=== PATIENT | male | born 1935 | race Caucasian/White ===

== ENCOUNTER 2018-11-20 03:08 | Emergency (ER) | payer OTHER ==
[~2018-11-20] VITALS: Ht 193 cm; Wt 105.0 kg
[2018-11-20 03:17] VITALS: BP 169/72
--- NOTE | 2018-11-20 03:39 | NUR ---
Pt here by ambulance for weakness and shortness of breath. Per EMS room air SPO2 93%. Lungs clear. Pt alert and oriented times 4, however inconsistent with questions about medical history. Recent pacemaker replacement. incision approximated with sotero. No redness or erythema. Yellowed bruising. Urinary catheter in place. Pt reports that he is scheduled for a TURP.
[2018-11-20 03:48] LABS: BASOPHILS # (AUTO) 0.03 x10^3/uL (0-0.1); BASOPHILS % (AUTO) 0 % (0-1); EOSINOPHILS # (AUTO) 0.21 x10^3/uL (0-0.4); EOSINOPHILS % (AUTO) 3 % (1-7); LYMPHOCYTES # (AUTO) 1.32 x10^3/uL (1-3.4); LYMPHOCYTES % (AUTO) 18 % (22-44); MD NO; MEAN CORPUSCULAR HEMOGLOBIN 26.2 pg (27.5-34.5); MEAN CORPUSCULAR HGB CONC 32.9 g/dL (33.2-36.2); MEAN CORPUSCULAR VOLUME 79.8 fL (81-97); MEAN PLATELET VOLUME 7.7 fL (7.4-10.4); MONOCYTES # (AUTO) 0.65 x10^3/uL (0.2-0.8); MONOCYTES % (AUTO) 9 % (2-9); NEUTROPHILS # (AUTO) 5.23 x10^3/uL (1.8-6.8); NEUTROPHILS % (AUTO) 70 % (42-75); PLATELET COUNT 282 x10^3/uL (130-400); RED BLOOD COUNT 4.42 x10^6/uL (4.38-5.82); RED CELL DISTRIBUTION WIDTH 18.3 % (9.4-14.8)
[2018-11-20 03:57] LABS: INTERNATIONAL NORMALIZED RATIO 1.02 (0.93-1.1); PROTHROMBIN TIME 10.7 Seconds (9.6-11.5)
[2018-11-20 03:58] LABS: ALANINE AMINOTRANSFERASE 20 U/L (12-78); ALBUMIN 3.2 g/dL (3.4-5.0); ANION GAP 6 mmol/L (5-15); CALCIUM 8.7 mg/dL (8.5-10.1); CHLORIDE 109 mmol/L (98-107); CREATININE 0.88 mg/dL (0.7-1.3)
[2018-11-20 04:02] LABS: ALKALINE PHOSPHATASE 62 U/L (45-117); BILIRUBIN,TOTAL 0.5 mg/dL (0.2-1.0); TOTAL PROTEIN 6.5 g/dL (6.4-8.2); TROPONIN I < 0.015 ng/mL (0.000-0.045)
[2018-11-20] MEDS ORDERED: METO25TA35 PO (04:05)
[2018-11-20] MEDS ORDERED: TAMS-11 PO (04:05)
[2018-11-20] MEDS ORDERED: LISI5TAB7 PO (04:05)
[2018-11-20 04:31] LABS: CULTURE INDICATED? YES; MICROSCOPIC INDICATED
--- NOTE | 2018-11-20 04:43 | NUR ---
Pt ambulated in hallway with walker. Unsteady gait. Usually uses a front wheeled walker. Independent living. Pt spo2 95%. Discussed with Dr. Iqbal. Pt to be discharged home. Looking for a safe way home.
[2018-11-21] MEDS ORDERED: METH500T7 PO (02:58)
[2018-11-21] MEDS ORDERED: ATOR10TA9 PO (02:58)
== END 2018-11-20 06:24 | disposition home or self-care (01) ==
LOC: ED 05:07
DX: M54.2 Cervicalgia (principal); R60.0 Localized edema; I48.91 Unspecified atrial fibrillation; I10 Essential (primary) hypertension; Z95.0 Presence of cardiac pacemaker; W01.0XXA Fall on same level from slipping, tripping and stumbling without subsequent striking against object, initial encounter; Y93.89 Activity, other specified; Y92.89 Other specified places as the place of occurrence of the external cause; Y99.8 Other external cause status
CPT/HCPCS: 36415; 71045; 80053; 81001; 83880; 84484; 85025; 85610; 85730; 87077; 87086; 87106; 87186; 93005; 99284

== ENCOUNTER 2018-11-21 02:44 | Inpatient (IN) | payer OTHER ==
[2018-11-21] VITALS (7 sets, daily range): BP systolic 131–160; BP diastolic 63–85
[~2018-11-21] VITALS: Ht 193 cm; Wt 102.0 kg
[~2018-11-21 02:44] MED LIST: LISI5TAB7 PO; METO25TA35 PO; TAMS-11 PO
[2018-11-21] MEDS ORDERED: ATOR10TA9 PO (02:58)
[2018-11-21] MEDS ORDERED: METH500T7 PO (02:58)
--- NOTE | 2018-11-21 03:30 | NUR ---
PT BIB [facility] WITH WEAKNESS. - LOC, PT STATES HE DID NOT HIT HIS HEAD. A&O x4, GSC 15.
[2018-11-21 03:42] LABS: BASOPHILS # (AUTO) 0.03 x10^3/uL (0-0.1); BASOPHILS % (AUTO) 1 % (0-1); EOSINOPHILS % (AUTO) 2 % (1-7); LYMPHOCYTES # (AUTO) 1.29 x10^3/uL (1-3.4); LYMPHOCYTES % (AUTO) 20 % (22-44); MD NO; MEAN CORPUSCULAR HEMOGLOBIN 26.3 pg (27.5-34.5); MEAN CORPUSCULAR HGB CONC 33.2 g/dL (33.2-36.2); MEAN PLATELET VOLUME 7.7 fL (7.4-10.4); MONOCYTES # (AUTO) 0.68 x10^3/uL (0.2-0.8); MONOCYTES % (AUTO) 11 % (2-9); NEUTROPHILS % (AUTO) 68 % (42-75); PLATELET COUNT 287 x10^3/uL (130-400); RED BLOOD COUNT 4.61 x10^6/uL (4.38-5.82); RED CELL DISTRIBUTION WIDTH 18.2 % (9.4-14.8)
[2018-11-21 03:54] LABS: ANION GAP 6 mmol/L (5-15); CALCIUM 8.9 mg/dL (8.5-10.1); CHLORIDE 110 mmol/L (98-107)
[2018-11-21 04:05] LABS: THYROID STIMULATING HORMONE 0.431 mIU/L (0.358-3.740)
--- NOTE | 2018-11-21 04:25 | NUR ---
PT STATES THAT HE WANTS TO GO HOME NOTIFIED
--- NOTE | 2018-11-21 05:14 | NUR ---
AWAITING ADMIT BED PT IN NAD VSS
--- NOTE | 2018-11-21 05:22 | NUR ---
REPORT TO ANNIVER PT TO FLOOR WITH TECH
[2018-11-21] MEDS ORDERED: hydrALAzine 20 MG/ML, 1ML IVPush PRN (05:30)
[2018-11-21] MEDS ORDERED: BISACODYL 10 MG SUPP PR PRN (05:30)
[2018-11-21] MEDS ORDERED: ONDANSETRON ODT 4 MG PO PRN (05:30)
[2018-11-21] MEDS ORDERED: PROMETHAZINE 25 MG/ML, 1ML IM PRN (05:30)
[2018-11-21] MEDS ORDERED: morphine SULFATE 10 MG/ML, 1ML IVPush PRN (05:30)
[2018-11-21] MEDS ORDERED: POLYETHYLENE GLYCOL 17 GM PACKET PO PRN (05:30)
[2018-11-21] MEDS ORDERED: ONDANSETRON 2MG/ML, 2ML IVPush PRN (05:30)
[2018-11-21] MEDS ORDERED: GABAPENTIN 300 MG CAPSULE PO PRN (05:30)
[2018-11-21 06:33] LABS: HEMOGLOBIN A1C 5.7 % (4.2-6.3)
[2018-11-21 07:06] LABS: FREE T4 (FREE THYROXINE) 1.32 ng/dL (0.76-1.46)
[2018-11-21] MEDS ORDERED: LISINOPRIL 5 MG TABLET PO SCH (09:00)
[2018-11-21] MEDS: METOPROLOL TARTRATE 25 MG TABLET PO SCH (11:32)
[2018-11-21] MEDS: ENOXAPARIN 40 MG/0.4 ML SQ SCH (11:32)
[2018-11-21] MEDS: TAMSULOSIN 0.4 MG CAP.ER.24H PO SCH (11:32)
[2018-11-21] MEDS: SENNA/DOCUSATE TABLET PO SCH (11:33)
[2018-11-21] MEDS: D5%-0.9% NACL 1,000 ML IV SCH ×2 (11:40→21:13)
[2018-11-21] MEDS: ERGOCALCIFEROL 50,000 UNIT CAPSULE PO SCH (14:27)
[2018-11-21] MEDS: ATORVASTATIN 10 MG TABLET PO SCH (21:08)
[2018-11-22 01:50] VITALS: BP 167/69
[2018-11-22 05:36] LABS: BASOPHILS # (AUTO) 0.04 x10^3/uL (0-0.1); BASOPHILS % (AUTO) 1 % (0-1); EOSINOPHILS # (AUTO) 0.12 x10^3/uL (0-0.4); EOSINOPHILS % (AUTO) 2 % (1-7); LYMPHOCYTES # (AUTO) 1.05 x10^3/uL (1-3.4); LYMPHOCYTES % (AUTO) 16 % (22-44); MD NO; MEAN CORPUSCULAR HGB CONC 32.8 g/dL (33.2-36.2); MEAN CORPUSCULAR VOLUME 79.1 fL (81-97); MEAN PLATELET VOLUME 8.2 fL (7.4-10.4); MONOCYTES # (AUTO) 0.74 x10^3/uL (0.2-0.8); MONOCYTES % (AUTO) 11 % (2-9); NEUTROPHILS # (AUTO) 4.69 x10^3/uL (1.8-6.8); NEUTROPHILS % (AUTO) 71 % (42-75); PLATELET COUNT 299 x10^3/uL (130-400); RED BLOOD COUNT 4.56 x10^6/uL (4.38-5.82); RED CELL DISTRIBUTION WIDTH 18.2 % (9.4-14.8)
[2018-11-22 05:50] LABS: CHLORIDE 113 mmol/L (98-107)
[2018-11-22 05:57] LABS: ALANINE AMINOTRANSFERASE 18 U/L (12-78); ALBUMIN 3.2 g/dL (3.4-5.0); ALKALINE PHOSPHATASE 69 U/L (45-117); ANION GAP 6 mmol/L (5-15); BILIRUBIN,TOTAL 0.7 mg/dL (0.2-1.0); CALCIUM 8.9 mg/dL (8.5-10.1); CHOL/HDL RATIO 2.6; CHOLESTEROL, TOTAL 149 mg/dL (140-239); CREATININE 0.72 mg/dL (0.7-1.3); HDL CHOLESTEROL (DIRECT) 58 mg/dL (40-60); TOTAL PROTEIN 6.6 g/dL (6.4-8.2); TRIGLYCERIDES 95 mg/dL (50-200); VLDL CHOLESTEROL 19 mg/dL (0-25)
[2018-11-22 05:58] LABS: HDL CHOL % 39 % (26-37); LDL CHOLESTEROL,CALCULATED 72 mg/dL (54-169); LDL/HDL RATIO 1.2 (0.5-3.0)
[2018-11-22 07:03] VITALS: BP 162/64
[2018-11-22] MEDS ORDERED: TRAZODONE 50MG TABLET PO PRN (08:00)
[2018-11-22] MEDS: SENNA/DOCUSATE TABLET PO SCH (09:00)
[2018-11-22] MEDS: ESCITALOPRAM 10MG TABLET PO SCH (09:00)
[2018-11-22] MEDS: TAMSULOSIN 0.4 MG CAP.ER.24H PO SCH (10:25)
[2018-11-22] MEDS: METOPROLOL TARTRATE 25 MG TABLET PO SCH (10:26)
[2018-11-22] MEDS: LISINOPRIL 20 MG TABLET PO SCH ×2 (10:27→22:14)
[2018-11-22] MEDS: IRON SUCROSE COMPLEX 100MG/5ML IV SCH (10:27)
[2018-11-22] MEDS: ENOXAPARIN 40 MG/0.4 ML SQ SCH (11:47)
[2018-11-22 12:31] LABS: CULTURE INDICATED? YES; MICROSCOPIC INDICATED
[2018-11-22 12:48] VITALS: BP 130/67
[2018-11-22] MEDS: CEFTRIAXONE PMX 1GM/50ML 50 ML IV SCH (14:11)
[2018-11-22] MEDS: ACETAMINOPHEN 325 MG TABLET PO PRN ×2 (16:09→23:37)
[2018-11-22 19:34] VITALS: BP 134/67
[2018-11-22] MEDS: ATORVASTATIN 10 MG TABLET PO SCH (22:14)
[2018-11-23 03:08] VITALS: BP 158/68
[2018-11-23 06:30] LABS: BASOPHILS # (AUTO) 0.03 x10^3/uL (0-0.1); BASOPHILS % (AUTO) 1 % (0-1); EOSINOPHILS # (AUTO) 0.13 x10^3/uL (0-0.4); EOSINOPHILS % (AUTO) 2 % (1-7); LYMPHOCYTES # (AUTO) 1.01 x10^3/uL (1-3.4); LYMPHOCYTES % (AUTO) 16 % (22-44); MD NO; MEAN CORPUSCULAR HEMOGLOBIN 25.7 pg (27.5-34.5); MEAN CORPUSCULAR HGB CONC 32.3 g/dL (33.2-36.2); MEAN CORPUSCULAR VOLUME 79.6 fL (81-97); MEAN PLATELET VOLUME 8.4 fL (7.4-10.4); MONOCYTES # (AUTO) 0.68 x10^3/uL (0.2-0.8); MONOCYTES % (AUTO) 11 % (2-9); NEUTROPHILS # (AUTO) 4.53 x10^3/uL (1.8-6.8); NEUTROPHILS % (AUTO) 71 % (42-75); PLATELET COUNT 263 x10^3/uL (130-400); RED BLOOD COUNT 4.67 x10^6/uL (4.38-5.82)
[2018-11-23 06:41] LABS: ALBUMIN 3.2 g/dL (3.4-5.0); ANION GAP 7 mmol/L (5-15); CALCIUM 8.8 mg/dL (8.5-10.1); CHLORIDE 114 mmol/L (98-107)
[2018-11-23 06:47] LABS: ALANINE AMINOTRANSFERASE 17 U/L (12-78); ALKALINE PHOSPHATASE 63 U/L (45-117); BILIRUBIN,TOTAL 0.6 mg/dL (0.2-1.0); CREATININE 0.79 mg/dL (0.7-1.3); TOTAL PROTEIN 6.6 g/dL (6.4-8.2)
[2018-11-23 07:45] VITALS: BP 161/68
[2018-11-23] MEDS: SENNA/DOCUSATE TABLET PO SCH (09:00)
[2018-11-23] MEDS: IRON SUCROSE COMPLEX 100MG/5ML IV SCH (10:53)
[2018-11-23] MEDS: TAMSULOSIN 0.4 MG CAP.ER.24H PO SCH (10:53)
[2018-11-23] MEDS: LISINOPRIL 20 MG TABLET PO SCH ×2 (11:00→21:02)
[2018-11-23] MEDS: METOPROLOL TARTRATE 25 MG TABLET PO SCH (11:01)
[2018-11-23] MEDS: ENOXAPARIN 40 MG/0.4 ML SQ SCH (11:03)
[2018-11-23] MEDS: ESCITALOPRAM 10MG TABLET PO SCH (11:06)
[2018-11-23] MEDS: CEFTRIAXONE PMX 1GM/50ML 50 ML IV SCH (13:19)
[2018-11-23 13:25] VITALS: BP 132/73
[2018-11-23] MEDS: HYDROcodone/APAP 5/325 TABLET PO PRN ×2 (14:16→21:02)
[2018-11-23] MEDS ORDERED: POTASSIUM CHLORIDE 20 MEQ TAB.ER.PRT PO ONE (16:30)
[2018-11-23] MEDS: AMPICILLIN 500 MG in SODIUM CHLORIDE 0.9% 100 ML IV SCH (16:54)
[2018-11-23 19:00] VITALS: BP 109/57
[2018-11-23 21:00] VITALS: BP 153/75
[2018-11-23] MEDS: ATORVASTATIN 10 MG TABLET PO SCH (21:02)
[2018-11-24] MEDS: AMPICILLIN 500 MG in SODIUM CHLORIDE 0.9% 100 ML IV SCH ×4 (00:52→19:21)
[2018-11-24] MEDS ORDERED: OMEPRAZOLE 20 MG CAPSULE.DR PO ONE (01:30)
[2018-11-24 01:45] VITALS: BP 133/57
[2018-11-24] MEDS: HYDROcodone/APAP 5/325 TABLET PO PRN ×4 (02:09→20:21)
[2018-11-24 05:58] LABS: BASOPHILS # (AUTO) 0.03 x10^3/uL (0-0.1); BASOPHILS % (AUTO) 1 % (0-1); EOSINOPHILS # (AUTO) 0.22 x10^3/uL (0-0.4); EOSINOPHILS % (AUTO) 3 % (1-7); LYMPHOCYTES # (AUTO) 1.17 x10^3/uL (1-3.4); LYMPHOCYTES % (AUTO) 17 % (22-44); MD NO; MEAN CORPUSCULAR HEMOGLOBIN 26.2 pg (27.5-34.5); MEAN CORPUSCULAR HGB CONC 32.9 g/dL (33.2-36.2); MEAN CORPUSCULAR VOLUME 79.5 fL (81-97); MEAN PLATELET VOLUME 8.1 fL (7.4-10.4); MONOCYTES # (AUTO) 0.67 x10^3/uL (0.2-0.8); MONOCYTES % (AUTO) 10 % (2-9); NEUTROPHILS # (AUTO) 4.69 x10^3/uL (1.8-6.8); NEUTROPHILS % (AUTO) 69 % (42-75); PLATELET COUNT 254 x10^3/uL (130-400); RED BLOOD COUNT 4.28 x10^6/uL (4.38-5.82)
[2018-11-24] MEDS: OMEPRAZOLE 20 MG CAPSULE.DR PO SCH (06:00)
[2018-11-24 07:13] LABS: ANION GAP 8 mmol/L (5-15); CALCIUM 8.5 mg/dL (8.5-10.1); CHLORIDE 114 mmol/L (98-107); CREATININE 0.86 mg/dL (0.7-1.3)
[2018-11-24 08:04] VITALS: BP 129/58
[2018-11-24] MEDS: TAMSULOSIN 0.4 MG CAP.ER.24H PO SCH (08:21)
[2018-11-24] MEDS: METOPROLOL TARTRATE 25 MG TABLET PO SCH (08:21)
[2018-11-24] MEDS: LISINOPRIL 20 MG TABLET PO SCH ×2 (08:21→20:21)
[2018-11-24] MEDS: IRON SUCROSE COMPLEX 100MG/5ML IV SCH (08:21)
[2018-11-24] MEDS: ESCITALOPRAM 10MG TABLET PO SCH (08:22)
[2018-11-24] MEDS: SENNA/DOCUSATE TABLET PO SCH (08:24)
[2018-11-24] MEDS: ENOXAPARIN 40 MG/0.4 ML SQ SCH (13:08)
[2018-11-24 13:16] VITALS: BP 132/63
[2018-11-24 13:49] VITALS: BP 142/74
[2018-11-24 19:09] VITALS: BP 136/69
[2018-11-24] MEDS: ATORVASTATIN 10 MG TABLET PO SCH (20:21)
[2018-11-24] MEDS: ACETAMINOPHEN 325 MG TABLET PO PRN (21:46)
[2018-11-25 00:10] VITALS: BP 146/68
[2018-11-25] MEDS: AMPICILLIN 500 MG in SODIUM CHLORIDE 0.9% 100 ML IV SCH ×5 (00:35→18:12)
[2018-11-25] MEDS: OMEPRAZOLE 20 MG CAPSULE.DR PO SCH (04:52)
[2018-11-25] MEDS: HYDROcodone/APAP 5/325 TABLET PO PRN ×3 (04:52→20:44)
[2018-11-25 07:34] VITALS: BP 142/64
[2018-11-25] MEDS: METOPROLOL TARTRATE 25 MG TABLET PO SCH (10:25)
[2018-11-25] MEDS: ESCITALOPRAM 10MG TABLET PO SCH (10:25)
[2018-11-25] MEDS: TAMSULOSIN 0.4 MG CAP.ER.24H PO SCH (10:25)
[2018-11-25] MEDS: SENNA/DOCUSATE TABLET PO SCH (10:25)
[2018-11-25] MEDS: LISINOPRIL 20 MG TABLET PO SCH ×2 (10:25→20:45)
[2018-11-25] MEDS: IRON SUCROSE COMPLEX 100MG/5ML IV SCH (10:25)
[2018-11-25] MEDS ORDERED: ACET325T14 PO (12:16)
[2018-11-25] MEDS ORDERED: ERGO500017 PO (12:16)
[2018-11-25] MEDS ORDERED: ENOX40SY4 SQ (12:16)
[2018-11-25] MEDS ORDERED: FERR325T18 PO (12:17)
[2018-11-25] MEDS ORDERED: TRAZ50TA66 PO (12:17)
[2018-11-25] MEDS ORDERED: SENN-177 PO (12:17)
[2018-11-25] MEDS ORDERED: ESCI10TA PO (12:17)
[2018-11-25] MEDS ORDERED: OMEP-110 PO (12:17)
[2018-11-25] MEDS ORDERED: AMOX-291 PO (12:17)
[2018-11-25] MEDS ORDERED: LISI-170 PO (12:17)
[2018-11-25] MEDS: ENOXAPARIN 40 MG/0.4 ML SQ SCH (12:38)
[2018-11-25 13:50] VITALS: BP 139/67
[2018-11-25 19:07] VITALS: BP 159/67
[2018-11-25] MEDS: ATORVASTATIN 10 MG TABLET PO SCH (20:45)
[2018-11-26] VITALS: BP 145/56
[2018-11-26] MEDS: HYDROcodone/APAP 5/325 TABLET PO PRN ×3 (00:45→23:10)
[2018-11-26] MEDS: OMEPRAZOLE 20 MG CAPSULE.DR PO SCH (05:48)
[2018-11-26] MEDS: AMOXICILLIN 500 MG CAPSULE PO SCH ×3 (05:48→20:45)
[2018-11-26 07:15] VITALS: BP 140/51
[2018-11-26] MEDS: SENNA/DOCUSATE TABLET PO SCH (09:00)
[2018-11-26] MEDS: METOPROLOL TARTRATE 25 MG TABLET PO SCH (09:00)
[2018-11-26] MEDS: IRON SUCROSE COMPLEX 100MG/5ML IV SCH (09:00)
[2018-11-26] MEDS: ESCITALOPRAM 10MG TABLET PO SCH (09:23)
[2018-11-26] MEDS: TAMSULOSIN 0.4 MG CAP.ER.24H PO SCH (09:23)
[2018-11-26] MEDS: LISINOPRIL 20 MG TABLET PO SCH ×2 (09:23→20:45)
[2018-11-26] MEDS: ENOXAPARIN 40 MG/0.4 ML SQ SCH (12:21)
[2018-11-26 14:00] VITALS: BP 165/74
[2018-11-26] MEDS: FERROUS SULFATE 325 MG TABLET PO SCH (16:46)
[2018-11-26] MEDS: ATORVASTATIN 10 MG TABLET PO SCH (20:45)
[2018-11-26 21:05] VITALS: BP 160/71
[2018-11-27 01:10] VITALS: BP 174/78
[2018-11-27] MEDS: OMEPRAZOLE 20 MG CAPSULE.DR PO SCH (06:00)
[2018-11-27 07:15] VITALS: BP 161/66
[2018-11-27] MEDS: AMOXICILLIN 500 MG CAPSULE PO SCH ×2 (08:16→20:34)
[2018-11-27] MEDS: ESCITALOPRAM 10MG TABLET PO SCH (08:16)
[2018-11-27] MEDS: TAMSULOSIN 0.4 MG CAP.ER.24H PO SCH (08:17)
[2018-11-27] MEDS: SENNA/DOCUSATE TABLET PO SCH (08:17)
[2018-11-27] MEDS: LISINOPRIL 20 MG TABLET PO SCH ×2 (08:17→20:34)
[2018-11-27] MEDS: FERROUS SULFATE 325 MG TABLET PO SCH ×2 (08:17→17:34)
[2018-11-27] MEDS: METOPROLOL TARTRATE 25 MG TABLET PO SCH (08:17)
[2018-11-27] MEDS: HYDROcodone/APAP 5/325 TABLET PO PRN ×2 (13:37→17:34)
[2018-11-27] MEDS: ENOXAPARIN 40 MG/0.4 ML SQ SCH (13:37)
[2018-11-27 16:00] VITALS: BP 109/69
[2018-11-27 19:39] VITALS: BP 131/70
[2018-11-27] MEDS: ATORVASTATIN 10 MG TABLET PO SCH (20:34)
[2018-11-28 00:38] VITALS: BP 143/72
[2018-11-28] MEDS: OMEPRAZOLE 20 MG CAPSULE.DR PO SCH (06:12)
[2018-11-28 07:54] VITALS: BP 135/67
[2018-11-28] MEDS: METOPROLOL TARTRATE 25 MG TABLET PO SCH (09:00)
[2018-11-28] MEDS: SENNA/DOCUSATE TABLET PO SCH (09:00)
[2018-11-28] MEDS: ESCITALOPRAM 10MG TABLET PO SCH (09:12)
[2018-11-28] MEDS: LISINOPRIL 20 MG TABLET PO SCH (09:12)
[2018-11-28] MEDS: FERROUS SULFATE 325 MG TABLET PO SCH ×2 (09:13→16:28)
[2018-11-28] MEDS: AMOXICILLIN 500 MG CAPSULE PO SCH (09:13)
[2018-11-28] MEDS: TAMSULOSIN 0.4 MG CAP.ER.24H PO SCH (09:13)
[2018-11-28] MEDS: HYDROcodone/APAP 5/325 TABLET PO PRN ×2 (09:13→16:28)
[2018-11-28] MEDS ORDERED: LIDODERM 5% PATCH TD PRN (12:00)
[2018-11-28 13:19] VITALS: BP 121/65
[2018-11-28] MEDS: ERGOCALCIFEROL 50,000 UNIT CAPSULE PO SCH (14:03)
[2018-11-28] MEDS: ENOXAPARIN 40 MG/0.4 ML SQ SCH (14:03)
== END 2018-11-28 17:08 | DRG 689 ==
LOC: ED 04:02 → EDIP 04:52 → 4NOR 05:45 → 4WST 14:40 → 4EST 11-24 01:00
PROVIDERS: ADMIT Internal Medicine; ATTEND Internal Medicine
PROC: 4B02XSZ Measurement of Cardiac Pacemaker, External Approach (ICD-10-PCS; principal; 2018-11-21)
PROC: 0T9B70Z Drainage of Bladder with Drainage Device, Via Natural or Artificial Opening (ICD-10-PCS; 2018-11-22)
DX: N39.0 Urinary tract infection, site not specified (principal); G93.41 Metabolic encephalopathy; F32.9 Major depressive disorder, single episode, unspecified; E55.9 Vitamin D deficiency, unspecified; D50.9 Iron deficiency anemia, unspecified; B95.2 Enterococcus as the cause of diseases classified elsewhere; E78.5 Hyperlipidemia, unspecified; E87.6 Hypokalemia; G89.29 Other chronic pain; I10 Essential (primary) hypertension; N40.0 Benign prostatic hyperplasia without lower urinary tract symptoms; Z96.649 Presence of unspecified artificial hip joint; R62.7 Adult failure to thrive; M54.9 Dorsalgia, unspecified; W18.30XA Fall on same level, unspecified, initial encounter; Z95.0 Presence of cardiac pacemaker; Z79.899 Other long term (current) drug therapy; Z88.8 Allergy status to other drugs, medicaments and biological substances; Z88.2 Allergy status to sulfonamides; Y93.89 Activity, other specified; Y92.89 Other specified places as the place of occurrence of the external cause; Y99.8 Other external cause status
CPT/HCPCS: 36415; 70450; 80048; 80053; 80061; 81001; 82306; 82607; 82728; 83036; 83540; 83550; 83735; 84100; 84439; 84443; 84466; 85025; 87040; 87086; 93005; 99285; G0378; J0696; J1650; J1756; J7042; Q0162; J0290

== ENCOUNTER 2018-12-12 00:35 | Inpatient (IN) | payer OTHER ==
[~2018-12-12] VITALS: Ht 193 cm; Wt 99.9 kg
[~2018-12-12 00:35] MED LIST changes: +ACET325T14 PO; +AMOX-291 PO; +ATOR10TA9 PO; +ENOX40SY4 SQ; +ERGO500017 PO; +ESCI10TA PO; +FERR325T18 PO; +LISI-170 PO; +METH500T7 PO; +OMEP-110 PO; +SENN-177 PO; +TRAZ50TA66 PO
--- NOTE | 2018-12-12 01:04 | NUR ---
TEODORO LIU C/O C/P X 1 HOUR
[2018-12-12 01:06] LABS: BASOPHILS # (AUTO) 0.03 x10^3/uL (0-0.1); BASOPHILS % (AUTO) 0 % (0-1); EOSINOPHILS # (AUTO) 0.17 x10^3/uL (0-0.4); EOSINOPHILS % (AUTO) 2 % (1-7); LYMPHOCYTES # (AUTO) 1.11 x10^3/uL (1-3.4); LYMPHOCYTES % (AUTO) 14 % (22-44); MD NO; MEAN CORPUSCULAR HEMOGLOBIN 27.3 pg (27.5-34.5); MEAN CORPUSCULAR VOLUME 82.5 fL (81-97); MEAN PLATELET VOLUME 7.8 fL (7.4-10.4); MONOCYTES # (AUTO) 0.94 x10^3/uL (0.2-0.8); MONOCYTES % (AUTO) 12 % (2-9); NEUTROPHILS # (AUTO) 5.78 x10^3/uL (1.8-6.8); NEUTROPHILS % (AUTO) 72 % (42-75); PLATELET COUNT 248 x10^3/uL (130-400); RED BLOOD COUNT 4.64 x10^6/uL (4.38-5.82); RED CELL DISTRIBUTION WIDTH 19.7 % (9.4-14.8)
[2018-12-12 01:16] LABS: ALANINE AMINOTRANSFERASE 19 U/L (12-78); ALBUMIN 3.3 g/dL (3.4-5.0); ANION GAP 6 mmol/L (5-15); CALCIUM 8.5 mg/dL (8.5-10.1); CHLORIDE 111 mmol/L (98-107); CREATININE 1.04 mg/dL (0.7-1.3)
[2018-12-12 01:21] LABS: ALKALINE PHOSPHATASE 54 U/L (45-117); BILIRUBIN,TOTAL 0.4 mg/dL (0.2-1.0); TOTAL PROTEIN 6.4 g/dL (6.4-8.2); TROPONIN I < 0.015 ng/mL (0.000-0.045)
--- NOTE | 2018-12-12 01:50 | NUR ---
AWAITING ADMIT BED
[2018-12-12] MEDS ORDERED: ONDANSETRON 2MG/ML, 2ML ONE (01:57)
[2018-12-12] MEDS ORDERED: MORPHINE SULFATE 4 MG/ML, 1ML ONE (01:57)
[2018-12-12] MEDS ORDERED: SODIUM CHLORIDE FLUSH 10ML SYR IVF ONE (02:00)
[2018-12-12] MEDS ORDERED: MORPHINE SULFATE 4 MG/ML, 1ML IVPush PRN (02:00)
[2018-12-12] MEDS ORDERED: ONDANSETRON 2MG/ML, 2ML IVPush ONE (02:00)
--- NOTE | 2018-12-12 02:24 | NUR ---
REPORT TO RONY
[2018-12-12] MEDS ORDERED: TRAZODONE 50MG TABLET PO PRN (02:30)
[2018-12-12] MEDS ORDERED: hydrALAzine 20 MG/ML, 1ML IVPush PRN (02:30)
[2018-12-12] MEDS ORDERED: HEPARIN 5,000 UNITS/ML, 1ML SQ SCH (02:30)
[2018-12-12] MEDS ORDERED: ERGOCALCIFEROL 50,000 UNIT CAPSULE PO SCH (02:30)
[2018-12-12 02:48] VITALS: BP 162/76
[2018-12-12 03:01] LABS: TROPONIN I < 0.015 ng/mL (0.000-0.045)
[2018-12-12] MEDS ORDERED: OMEPRAZOLE 20 MG CAPSULE.DR PO SCH (06:00)
[2018-12-12] MEDS ORDERED: ASPIRIN 325 MG TABLET EC PO SCH (06:00)
[2018-12-12 07:14] VITALS: BP 163/76
[2018-12-12] MEDS ORDERED: TAMSULOSIN 0.4 MG CAP.ER.24H PO SCH (09:00)
[2018-12-12] MEDS ORDERED: FERROUS SULFATE 325 MG TABLET PO SCH (09:00)
[2018-12-12] MEDS ORDERED: AMOXICILLIN 500 MG CAPSULE PO SCH (09:00)
[2018-12-12] MEDS ORDERED: METHOCARBAMOL 500 MG TABLET PO SCH (09:00)
[2018-12-12] MEDS ORDERED: LISINOPRIL 20 MG TABLET PO SCH (09:00)
[2018-12-12] MEDS ORDERED: SENNA/DOCUSATE TABLET PO SCH (09:00)
[2018-12-12] MEDS ORDERED: ESCITALOPRAM 10MG TABLET PO SCH (09:00)
[2018-12-12 09:09] LABS: TROPONIN I < 0.015 ng/mL (0.000-0.045)
[2018-12-12] MEDS ORDERED: REGADENOSON 0.4 MG/5 ML SYRINGE ONE (10:57)
[2018-12-12 12:19] VITALS: BP 136/62
[2018-12-12 13:55] VITALS: BP 131/76
[2018-12-12] MEDS ORDERED: METO25TA35 PO (13:58)
[2018-12-12] MEDS ORDERED: ASPI81TA45 PO (13:58)
[2018-12-12] MEDS ORDERED: METOPROLOL TARTRATE 25 MG TABLET PO SCH (14:00)
[2018-12-12] MEDS ORDERED: ATORVASTATIN 10 MG TABLET PO SCH (21:00)
== END 2018-12-12 15:23 | DRG 303 ==
LOC: ED 01:29 → EDIP 01:34 → ED 01:47 → 5SO 02:30
PROVIDERS: ADMIT Family Medicine; ATTEND Family Medicine
PROC: 4B02XSZ Measurement of Cardiac Pacemaker, External Approach (ICD-10-PCS; principal; 2018-12-12)
DX: I25.10 Atherosclerotic heart disease of native coronary artery without angina pectoris (principal); D50.9 Iron deficiency anemia, unspecified; E55.9 Vitamin D deficiency, unspecified; E78.5 Hyperlipidemia, unspecified; F32.9 Major depressive disorder, single episode, unspecified; G89.29 Other chronic pain; I10 Essential (primary) hypertension; Z96.643 Presence of artificial hip joint, bilateral; I48.91 Unspecified atrial fibrillation; N40.0 Benign prostatic hyperplasia without lower urinary tract symptoms; R29.6 Repeated falls; R62.7 Adult failure to thrive; Z87.440 Personal history of urinary (tract) infections; Z95.0 Presence of cardiac pacemaker
CPT/HCPCS: 36415; 71045; 78452; 80053; 83880; 84484; 85025; 93005; 93017; 96374; 96375; G0378; J2405; J2785; A9502; C9898

== ENCOUNTER 2018-12-15 10:31 | Emergency (ER) | payer OTHER ==
[~2018-12-15] VITALS: Ht 193 cm; Wt 102.0 kg
[~2018-12-15 10:31] MED LIST changes: +ASPI81TA45 PO
[2018-12-15] MEDS ORDERED: HYDR-3240 PO (10:59)
[2018-12-15] MEDS ORDERED: CHOL100014 PO (11:00)
[2018-12-15] MEDS ORDERED: VENL37.58 PO (11:01)
[2018-12-15 11:36] LABS: MEAN CORPUSCULAR HEMOGLOBIN 27.4 pg (27.5-34.5); MEAN CORPUSCULAR HGB CONC 32.9 g/dL (33.2-36.2); MEAN CORPUSCULAR VOLUME 83.2 fL (81-97); MEAN PLATELET VOLUME 7.9 fL (7.4-10.4); PLATELET COUNT 245 x10^3/uL (130-400); RED BLOOD COUNT 4.52 x10^6/uL (4.38-5.82); RED CELL DISTRIBUTION WIDTH 19.3 % (9.4-14.8)
[2018-12-15 11:39] LABS: INTERNATIONAL NORMALIZED RATIO 1.05 (0.93-1.1)
[2018-12-15 11:40] LABS: ALBUMIN 3.4 g/dL (3.4-5.0); ANION GAP 5 mmol/L (5-15); CALCIUM 8.8 mg/dL (8.5-10.1); CHLORIDE 111 mmol/L (98-107)
[2018-12-15 11:47] LABS: ALANINE AMINOTRANSFERASE 18 U/L (12-78); ALKALINE PHOSPHATASE 52 U/L (45-117); BILIRUBIN,TOTAL 1.6 mg/dL (0.2-1.0); CREATININE 0.84 mg/dL (0.7-1.3); TOTAL PROTEIN 6.4 g/dL (6.4-8.2); TROPONIN I < 0.015 ng/mL (0.000-0.045)
[2018-12-15] MEDS ORDERED: CYAN25009 PO (11:50)
[2018-12-15] MEDS ORDERED: VENL75TA PO (11:50)
[2018-12-15] MEDS ORDERED: CALC-680 PO (11:50)
[2018-12-15] MEDS ORDERED: ENOX40SY4 SQ (11:50)
[2018-12-15] MEDS ORDERED: HYDR-3652 PO (11:50)
[2018-12-15 11:56] LABS: BASOPHILS % (AUTO) 0 % (0-1); EOSINOPHILS # (AUTO) 0.09 x10^3/uL (0-0.4); EOSINOPHILS % (AUTO) 1 % (1-7); LYMPHOCYTES # (AUTO) 0.49 x10^3/uL (1-3.4); LYMPHOCYTES % (AUTO) 3 % (22-44); MD SCAN; MONOCYTES # (AUTO) 1.12 x10^3/uL (0.2-0.8); MONOCYTES % (AUTO) 8 % (2-9); NEUTROPHILS # (AUTO) 12.93 x10^3/uL (1.8-6.8); NEUTROPHILS % (AUTO) 88 % (42-75)
[2018-12-15 14:07] VITALS: BP 116/55
--- NOTE | 2018-12-15 14:07 | NUR ---
RECEIVED REPORT FROM MEE BARTON. PT RESTING ON RAYRAYBONITA. NADN. NIÑO.
--- NOTE | 2018-12-15 14:18 | NUR ---
SPOKE W/ MATT FROM [facility] WHO STATES SHE WILL CALL BACK W/ A TRANSPORT TIME FOR PT PICKUP.
--- NOTE | 2018-12-15 14:40 | NUR ---
PER MATT NO TRANSPORT AVAILABLE FOR PT. [facility] FOR PT AT 1500. REPORT GIVEN TO YOCASTA AT [facility]. ALL QUESTIONS ANSWERED. AWAITING PT TRANSPORT.
== END 2018-12-15 15:36 | disposition home or self-care (01) ==
LOC: ED 11:17
DX: R07.89 Other chest pain (principal); R10.84 Generalized abdominal pain; F32.9 Major depressive disorder, single episode, unspecified; Z95.0 Presence of cardiac pacemaker
CPT/HCPCS: 36415; 71045; 74176; 80053; 83690; 84484; 85025; 85610; 85730; 93005; 99284

== ENCOUNTER 2019-01-01 03:31 | Emergency (ER) | payer OTHER ==
[~2019-01-01] VITALS: Ht 193 cm; Wt 102.0 kg
[~2019-01-01 03:31] MED LIST changes: +CALC-680 PO; +CHOL100014 PO; +CYAN25009 PO; +HYDR-3240 PO; +HYDR-3652 PO; +VENL37.58 PO; +VENL75TA PO
--- NOTE | 2019-01-01 04:02 | NUR ---
eric brown from [facility], per emt snf home staff stated pt has breathing problem, emt stated pt had no c/o breathing problems, pt stated enrout that his neck hurt and has burning sensation to suprapublic cath, emt stated that they found pt with suprapubic cath wrapped around pt. pt a&ox4, fsbs-97, hr 60's with paced rhythm. pt resting on gurney, provided pt with warm blanket, monitors in place, call light within reach
[2019-01-01] MEDS ORDERED: NYST1000 PO (04:11)
[2019-01-01] MEDS ORDERED: CIPR250T27 PO (04:11)
[2019-01-01] MEDS ORDERED: ASPI-496 PO (04:11)
[2019-01-01] MEDS ORDERED: BUSP5TAB2 PO (04:11)
[2019-01-01] MEDS ORDERED: ESCI5TAB PO (04:11)
[2019-01-01] MEDS ORDERED: METH500T7 PO (04:11)
[2019-01-01] MEDS ORDERED: PANT20TA3 PO (04:11)
[2019-01-01] MEDS ORDERED: HYDR10TA4 PO (04:11)
[2019-01-01] MEDS ORDERED: FINA1TAB16 PO (04:11)
[2019-01-01 04:17] VITALS: BP 166/83
--- NOTE | 2019-01-01 04:17 | NUR ---
pt resting on gurney, frequently using call light, pt stated " can I go home now" ,discussed poc with pt and pt stated " i'm ready to go home now". monitors in place, call light within reach. erp updated pt requesting to go home
== END 2019-01-01 05:03 | disposition home or self-care (01) ==
LOC: ED 04:55
DX: G89.29 Other chronic pain (principal); M54.2 Cervicalgia; L24.9 Irritant contact dermatitis, unspecified cause; Z95.0 Presence of cardiac pacemaker
CPT/HCPCS: 99283

== ENCOUNTER 2019-01-15 19:39 | Inpatient (IN) | payer OTHER ==
[~2019-01-15] VITALS: Ht 193 cm; Wt 96.0 kg
[~2019-01-15 19:39] MED LIST changes: +ASPI-496 PO; +BUSP5TAB2 PO; +CIPR250T27 PO; +ESCI5TAB PO; +FINA1TAB16 PO; +HYDR10TA4 PO; +NYST1000 PO; +PANT20TA3 PO
--- NOTE | 2019-01-15 20:17 | NUR ---
pt bib [facility] after a glf at which time pt denies any injury. pt wishes to be transported to the er for weakness. pt presents in a paced rhythm, vss, skin pale and supra-pubic catheter. insertion site has a white drainage present. writing has worn off the catheter so identifying size is difficult. pt states the last time it was changed was " a while ago." when asked to ellaborate pt states over a month.
[2019-01-15 20:30] LABS: CULTURE INDICATED? YES; MICROSCOPIC INDICATED
--- NOTE | 2019-01-15 20:31 | NUR ---
[facility] but per [facility] di[facility].
--- NOTE | 2019-01-15 20:47 | NUR ---
pt in bed watching tv. no wants or needs expressed at this time.
[2019-01-15 20:52] LABS: BASOPHILS # (AUTO) 0.02 x10^3/uL (0-0.1); BASOPHILS % (AUTO) 0 % (0-1); EOSINOPHILS # (AUTO) 0.06 x10^3/uL (0-0.4); EOSINOPHILS % (AUTO) 1 % (1-7); LYMPHOCYTES % (AUTO) 12 % (22-44); MD NO; MEAN CORPUSCULAR HEMOGLOBIN 27.5 pg (27.5-34.5); MEAN CORPUSCULAR HGB CONC 32.1 g/dL (33.2-36.2); MEAN CORPUSCULAR VOLUME 85.7 fL (81-97); MEAN PLATELET VOLUME 7.7 fL (7.4-10.4); MONOCYTES # (AUTO) 0.82 x10^3/uL (0.2-0.8); MONOCYTES % (AUTO) 9 % (2-9); NEUTROPHILS # (AUTO) 7.12 x10^3/uL (1.8-6.8); NEUTROPHILS % (AUTO) 78 % (42-75); PLATELET COUNT 329 x10^3/uL (130-400); RED BLOOD COUNT 5.54 x10^6/uL (4.38-5.82)
[2019-01-15 21:04] LABS: ALANINE AMINOTRANSFERASE 27 U/L (12-78); ALBUMIN 3.7 g/dL (3.4-5.0); ANION GAP 8 mmol/L (5-15); CALCIUM 9.3 mg/dL (8.5-10.1); CHLORIDE 107 mmol/L (98-107); CREATININE 1.06 mg/dL (0.7-1.3)
[2019-01-15] MEDS ORDERED: CEFTRIAXONE PMX 1GM/50ML 50 ML ONE (21:05)
[2019-01-15 21:08] LABS: ALKALINE PHOSPHATASE 74 U/L (45-117); BILIRUBIN,TOTAL 0.8 mg/dL (0.2-1.0); TOTAL PROTEIN 7.6 g/dL (6.4-8.2); TROPONIN I < 0.015 ng/mL (0.000-0.045)
[2019-01-15] MEDS ORDERED: CEFTRIAXONE PMX 1GM/50ML 50 ML IV ONE ×2 (21:30→23:00)
[2019-01-15 22:56] VITALS: BP 136/74
[2019-01-15 22:59] VITALS: BP 154/67
[2019-01-15] MEDS ORDERED: ONDANSETRON ODT 4 MG PO PRN (23:00)
[2019-01-15] MEDS ORDERED: hydrALAzine 20 MG/ML, 1ML IVPush PRN (23:00)
[2019-01-15] MEDS ORDERED: ACETAMINOPHEN 325 MG TABLET PO PRN (23:00)
[2019-01-15] MEDS ORDERED: LIDODERM 5% PATCH TD PRN (23:00)
[2019-01-15] MEDS ORDERED: DOCUSATE 100 MG CAPSULE PO PRN (23:00)
[2019-01-16] MEDS: TRAZODONE 50MG TABLET PO PRN ×3 (01:59→21:52)
[2019-01-16 02:52] VITALS: BP 135/73
[2019-01-16 05:42] LABS: BASOPHILS # (AUTO) 0.04 x10^3/uL (0-0.1); BASOPHILS % (AUTO) 1 % (0-1); EOSINOPHILS # (AUTO) 0.12 x10^3/uL (0-0.4); EOSINOPHILS % (AUTO) 2 % (1-7); LYMPHOCYTES # (AUTO) 1.29 x10^3/uL (1-3.4); LYMPHOCYTES % (AUTO) 17 % (22-44); MD NO; MEAN CORPUSCULAR HEMOGLOBIN 27.5 pg (27.5-34.5); MEAN CORPUSCULAR HGB CONC 32.4 g/dL (33.2-36.2); MEAN CORPUSCULAR VOLUME 84.7 fL (81-97); MEAN PLATELET VOLUME 7.6 fL (7.4-10.4); MONOCYTES # (AUTO) 0.84 x10^3/uL (0.2-0.8); MONOCYTES % (AUTO) 11 % (2-9); NEUTROPHILS # (AUTO) 5.53 x10^3/uL (1.8-6.8); NEUTROPHILS % (AUTO) 71 % (42-75); PLATELET COUNT 297 x10^3/uL (130-400); RED BLOOD COUNT 5.14 x10^6/uL (4.38-5.82); RED CELL DISTRIBUTION WIDTH 17.3 % (9.4-14.8)
[2019-01-16 05:46] LABS: ANION GAP 8 mmol/L (5-15); CALCIUM 9.3 mg/dL (8.5-10.1); CHLORIDE 108 mmol/L (98-107); CREATININE 0.97 mg/dL (0.7-1.3)
[2019-01-16 08:00] VITALS: BP 138/71
[2019-01-16] MEDS: HEPARIN 5,000 UNITS/ML, 1ML SQ SCH ×2 (12:49→20:09)
[2019-01-16 13:30] VITALS: BP 136/71
[2019-01-16 18:43] VITALS: BP 119/70
[2019-01-16] MEDS ORDERED: CEFTRIAXONE PMX 2GM/50ML 50 ML IV SCH (21:00)
[2019-01-17 00:10] VITALS: BP 133/70
[2019-01-17] MEDS: HEPARIN 5,000 UNITS/ML, 1ML SQ SCH ×3 (04:08→21:14)
[2019-01-17] MEDS ORDERED: AMPICILLIN/SULBACTAM 3 GM in SODIUM CHLORIDE 0.9% 100 ML IV SCH (08:00)
[2019-01-17 09:50] VITALS: BP 117/70
[2019-01-17 12:55] VITALS: BP 141/68
[2019-01-17] MEDS: PIPERACILLIN/TAZO/PMX 3.375GM 50 ML IV SCH (16:28)
[2019-01-17 18:50] VITALS: BP 154/73
[2019-01-17] MEDS: GABAPENTIN 300 MG CAPSULE PO PRN (21:14)
[2019-01-17] MEDS: TRAZODONE 50MG TABLET PO PRN (21:14)
[2019-01-18] MEDS: PIPERACILLIN/TAZO/PMX 3.375GM 50 ML IV SCH ×4 (00:09→23:29)
[2019-01-18 02:14] VITALS: BP 167/93
[2019-01-18 06:55] VITALS: BP 152/80
[2019-01-18] MEDS: HEPARIN 5,000 UNITS/ML, 1ML SQ SCH ×3 (08:12→23:29)
[2019-01-18 09:37] LABS: BASOPHILS # (AUTO) 0.05 x10^3/uL (0-0.1); BASOPHILS % (AUTO) 1 % (0-1); EOSINOPHILS # (AUTO) 0.11 x10^3/uL (0-0.4); EOSINOPHILS % (AUTO) 2 % (1-7); LYMPHOCYTES # (AUTO) 1.06 x10^3/uL (1-3.4); LYMPHOCYTES % (AUTO) 16 % (22-44); MD NO; MEAN CORPUSCULAR HEMOGLOBIN 26.9 pg (27.5-34.5); MEAN CORPUSCULAR HGB CONC 31.5 g/dL (33.2-36.2); MEAN CORPUSCULAR VOLUME 85.4 fL (81-97); MEAN PLATELET VOLUME 7.5 fL (7.4-10.4); MONOCYTES % (AUTO) 8 % (2-9); NEUTROPHILS # (AUTO) 4.95 x10^3/uL (1.8-6.8); NEUTROPHILS % (AUTO) 74 % (42-75); PLATELET COUNT 254 x10^3/uL (130-400); RED BLOOD COUNT 5.05 x10^6/uL (4.38-5.82); RED CELL DISTRIBUTION WIDTH 17.2 % (9.4-14.8)
[2019-01-18 12:25] LABS: ANION GAP 6 mmol/L (5-15); CHLORIDE 111 mmol/L (98-107); CREATININE 1.05 mg/dL (0.7-1.3)
[2019-01-18 13:14] VITALS: BP 133/76
[2019-01-18] MEDS: GABAPENTIN 300 MG CAPSULE PO PRN (19:32)
[2019-01-18] MEDS: TRAZODONE 50MG TABLET PO PRN (20:19)
[2019-01-18 20:59] VITALS: BP 150/73
[2019-01-19 00:39] VITALS: BP 150/73
[2019-01-19] MEDS: HEPARIN 5,000 UNITS/ML, 1ML SQ SCH ×3 (07:00→09:03)
[2019-01-19 07:50] VITALS: BP 148/96
[2019-01-19] MEDS ORDERED: ACETAMINOPHEN 325 MG TABLET PO PRN (08:00)
[2019-01-19] MEDS: PIPERACILLIN/TAZO/PMX 3.375GM 50 ML IV SCH (09:02)
[2019-01-19] MEDS ORDERED: AMLODIPINE 2.5 MG TABLET PO SCH (14:00)
[2019-01-19] MEDS ORDERED: LISINOPRIL 5 MG TABLET PO SCH (14:00)
[2019-01-19] MEDS ORDERED: NITROFURANTOIN (MACROBID) 100 MG CAPSULE PO SCH (21:00)
== END 2019-01-19 13:45 | disposition left against medical advice (07) | DRG 698 ==
LOC: ED 19:53 → EDIP 22:13 → 3NE 22:22
PROVIDERS: ADMIT Internal Medicine; ATTEND Internal Medicine
PROC: 0T9B70Z Drainage of Bladder with Drainage Device, Via Natural or Artificial Opening (ICD-10-PCS; principal; 2019-01-15)
DX: T83.511A Infection and inflammatory reaction due to indwelling urethral catheter, initial encounter (principal); G93.41 Metabolic encephalopathy; L03.90 Cellulitis, unspecified; F33.9 Major depressive disorder, recurrent, unspecified; E78.5 Hyperlipidemia, unspecified; I10 Essential (primary) hypertension; N40.0 Benign prostatic hyperplasia without lower urinary tract symptoms; Z96.649 Presence of unspecified artificial hip joint; W18.39XA Other fall on same level, initial encounter; Z53.21 Procedure and treatment not carried out due to patient leaving prior to being seen by health care provider; B95.2 Enterococcus as the cause of diseases classified elsewhere; Y83.8 Other surgical procedures as the cause of abnormal reaction of the patient, or of later complication, without mention of misadventure at the time of the procedure; Z86.73 Personal history of transient ischemic attack (TIA), and cerebral infarction without residual deficits; Z95.0 Presence of cardiac pacemaker; Z88.2 Allergy status to sulfonamides; Y92.89 Other specified places as the place of occurrence of the external cause; Y93.89 Activity, other specified
CPT/HCPCS: 36415; 70450; 71045; 72125; 72190; 80048; 80053; 81001; 83605; 83690; 84484; 85025; 87040; 87077; 87086; 87186; 93005; 96374; G0378; J0295; J0696; J1644; J2543; Q0162

== ENCOUNTER 2019-03-12 20:11 | Emergency (ER) | payer OTHER ==
[~2019-03-12] VITALS: Ht 193 cm; Wt 94.8 kg
--- NOTE | 2019-03-12 20:35 | NUR ---
PT STATES HE PASSED OUT AND WAS UNCONCIOUS FOR ONE A SECOND. PTS FIRST REQUEST TO THIS NURSE WAS FOR XANAX. PT STATES HE HAS ANXIETY AND BEEN WITHOUT XANAX FOR THREE DAYS. ER MD INTO ASSESS PT. PT ATTACHED TO ALL MONITORS.
[2019-03-12 21:08] LABS: BASOPHILS # (AUTO) 0.03 x10^3/uL (0-0.1); BASOPHILS % (AUTO) 1 % (0-1); EOSINOPHILS # (AUTO) 0.14 x10^3/uL (0-0.4); EOSINOPHILS % (AUTO) 2 % (1-7); LYMPHOCYTES # (AUTO) 1.04 x10^3/uL (1-3.4); LYMPHOCYTES % (AUTO) 14 % (22-44); MD NO; MEAN CORPUSCULAR HEMOGLOBIN 28.3 pg (27.5-34.5); MEAN CORPUSCULAR HGB CONC 32.6 g/dL (33.2-36.2); MEAN CORPUSCULAR VOLUME 86.8 fL (81-97); MEAN PLATELET VOLUME 7.5 fL (7.4-10.4); MONOCYTES # (AUTO) 0.76 x10^3/uL (0.2-0.8); MONOCYTES % (AUTO) 10 % (2-9); NEUTROPHILS # (AUTO) 5.43 x10^3/uL (1.8-6.8); NEUTROPHILS % (AUTO) 73 % (42-75); PLATELET COUNT 269 x10^3/uL (130-400); RED BLOOD COUNT 4.56 x10^6/uL (4.38-5.82); RED CELL DISTRIBUTION WIDTH 17.1 % (9.4-14.8)
[2019-03-12 21:10] LABS: ALANINE AMINOTRANSFERASE 27 U/L (12-78); ALBUMIN 3.2 g/dL (3.4-5.0); ANION GAP 8 mmol/L (5-15); CALCIUM 8.7 mg/dL (8.5-10.1); CHLORIDE 110 mmol/L (98-107); CREATININE 1.07 mg/dL (0.7-1.3)
[2019-03-12 21:14] LABS: ALKALINE PHOSPHATASE 58 U/L (45-117); BILIRUBIN,TOTAL 0.6 mg/dL (0.2-1.0); TOTAL PROTEIN 6.8 g/dL (6.4-8.2); TROPONIN I < 0.015 ng/mL (0.000-0.045)
--- NOTE | 2019-03-12 21:14 | NUR ---
PT REPORTS THAT HE HAS SHARP CHEST PAIN "LIKE AN ELEPHANT IS SITTING ON MY CHEST" REPEAT EKG COMPLETED AND ER MD BEKA IMMEDIATELY NOTIFIED WITH RESULTS. ER MD STATES PT TO BE ADMITTED. PT TO CT AT THIS TIME.
--- NOTE | 2019-03-12 22:10 | NUR ---
PT STATES HE DOES NOT WANT TO BE ADMITTED AND WANTS TO BE DISCHARGED FROM THE ED. ER MD [place] NOTIFIED.
[2019-03-12 22:21] VITALS: BP 158/79
--- NOTE | 2019-03-12 23:05 | NUR ---
PT ELOPED WITHOUT SIGNING PAPERWORK OR BEING SEE BY MD FOR CT RESULTS. PT MAY STILL HAVE IV IN RIGHT WRIST, THIS RN DID NOT DC IV BEFORE ELOPMENT. [facility] NON EMERGENCY NOTIFIED.
== END 2019-03-12 23:14 | disposition left against medical advice (07) ==
LOC: ED 21:12
DX: R55 Syncope and collapse (principal); F41.1 Generalized anxiety disorder; M54.2 Cervicalgia; R42 Dizziness and giddiness; Z95.0 Presence of cardiac pacemaker; Z98.890 Other specified postprocedural states
CPT/HCPCS: 36415; 70450; 71045; 72125; 72131; 80053; 80307; 84484; 85025; 93005; 99284

== ENCOUNTER 2019-11-10 07:05 | Emergency (ER) | payer MEDICARE, OTHER ==
[~2019-11-10] VITALS: Ht 182.9 cm; Wt 100.0 kg
[~2019-11-10 07:05] MED LIST changes: +HYDR-2995 PO; -HYDR10TA4 PO
[2019-11-10 07:23] VITALS: BP 170/81
--- NOTE | 2019-11-10 07:30 | NUR ---
BIB BY [facility] FROM [facility] ([facility]) FOR UNWITNESSED FALL D/T CHRONIC DIZZINESS. PATIENT HIT BACK OF HEAD DENIES LOC, no reported blood thinners nor any on provided med [facility] REPORTS GENERALIZED MOTA, NECK PAIN PROVIDER DEFERRING NEED FOR C-COLLAR SOFIE SECURITY AMBASSADOR REPORT PATIENT HAS HAD MANY FALLS LATELY AND HAS [facility] FSBS NOT CHECKED BY EMS (WILL CHECK SHORTLY) VSS
--- NOTE | 2019-11-10 07:54 | NUR ---
Fsbs [address] scan at 750a Provider asked for pain medicine/Sinemet orders
[2019-11-10] MEDS ORDERED: CARBIDOPA/LEVODOPA 25 MG/100 MG TABLET PO ONE (08:00)
--- NOTE | 2019-11-10 08:42 | NUR ---
[employer] called patient's contact (Mr. Linder [phone]) to determine patient's reason for all his falls and importance of pcp workup/medication adjustment and or upgrade in level of care at home to prevent additional falls. Mr Linder reports patient was in line at [facility] yesterday for his pcp appointment when he passed out (reportedly was given double his blood pressure meds yesterday am accidentilly). Mr linder reports he is working on getting a patient an expedited rescheduled appointment and working on moving patient to escalated level of care
--- NOTE | 2019-11-10 10:14 | NUR ---
NO SIDE EFFECTS WITH PAIN MEDICINE REPORTS PAIN IMPROVED TO 3/10 PROVIDED WITH BREAKFAST TRAY
== END 2019-11-10 10:17 | disposition home or self-care (01) ==
LOC: ED 07:23
DX: S00.93XA Contusion of unspecified part of head, initial encounter (principal); S09.90XA Unspecified injury of head, initial encounter; I10 Essential (primary) hypertension; W18.30XA Fall on same level, unspecified, initial encounter; Y93.89 Activity, other specified; Y92.009 Unspecified place in unspecified non-institutional (private) residence as the place of occurrence of the external cause; Y99.8 Other external cause status
CPT/HCPCS: 70450; 72125; 82962; 99285

== ENCOUNTER 2019-12-09 02:37 | Emergency (ER) | payer MEDICARE ==
[~2019-12-09] VITALS: Ht 193 cm; Wt 112.0 kg
[2019-12-09 02:42] VITALS: BP 161/70
--- NOTE | 2019-12-09 02:47 | NUR ---
Patient BIB [facility] c/o chronic low back pain x1 year. Patient states he does not and has not had any pain management. Patient rates the pain as a 10/10. Patient is in NAD. Respirations even and unlabored.
[2019-12-09] MEDS ORDERED: OXYcodone/APAP 5/325MG TABLET ONE (02:50)
[2019-12-09] MEDS ORDERED: CYCLOBENZAPRINE 10 MG TABLET ONE (02:50)
[2019-12-09] MEDS ORDERED: OXYcodone/APAP 5/325MG TABLET PO ONE (03:00)
[2019-12-09] MEDS ORDERED: CYCLOBENZAPRINE 10 MG TABLET PO ONE (03:00)
--- NOTE | 2019-12-09 03:13 | NUR ---
Called patient's friend, Des to pick patient up. He agreed and states he will be here in approx 30 minutes.
--- NOTE | 2019-12-09 03:52 | NUR ---
Discharge instructions given. Patient's friend, Des, arrived to pick patient up. All questions and concerns addressed. Patient ambulatory with a steady gait. Belongings with patient.
== END 2019-12-09 03:54 | disposition home or self-care (01) ==
LOC: ED 03:03
DX: S39.012A Strain of muscle, fascia and tendon of lower back, initial encounter (principal); I10 Essential (primary) hypertension; Z95.0 Presence of cardiac pacemaker; X58.XXXA Exposure to other specified factors, initial encounter; Y93.89 Activity, other specified; Y92.89 Other specified places as the place of occurrence of the external cause; Y99.8 Other external cause status
CPT/HCPCS: 99283

== ENCOUNTER 2020-02-22 16:56 | Emergency (ER) | payer MEDICARE ==
[~2020-02-22] VITALS: Ht 193 cm; Wt 95.0 kg
--- NOTE | 2020-02-22 17:03 | NUR ---
PT BIB [facility] FROM [facility] FOR [facility]. PLACED ON LEGAL BY ADMISSIONS GATE ATTENDANT. PT HAS HX OF DEMENTIA. STATES HE WANTS TO END HIS LIFE AND JOIN HIS . STATES HIS IN OCTOBER. PER EMS. 15 YEARS AGO. PT DENIES CP, COUGH,SOB. PT STATES HE IS UNHAPPY W HIS [facility]. VSS.
[2020-02-22 18:09] LABS: BASOPHILS # (AUTO) 0.03 x10^3/uL (0-0.1); BASOPHILS % (AUTO) 0 % (0-1); EOSINOPHILS # (AUTO) 0.07 x10^3/uL (0-0.4); EOSINOPHILS % (AUTO) 1 % (1-7); LYMPHOCYTES # (AUTO) 0.74 x10^3/uL (1-3.4); LYMPHOCYTES % (AUTO) 11 % (22-44); MD NO; MEAN CORPUSCULAR HEMOGLOBIN 30.1 pg (27.5-34.5); MEAN CORPUSCULAR HGB CONC 32.7 g/dL (33.2-36.2); MEAN CORPUSCULAR VOLUME 91.9 fL (81-97); MEAN PLATELET VOLUME 7.5 fL (7.4-10.4); MONOCYTES # (AUTO) 0.76 x10^3/uL (0.2-0.8); MONOCYTES % (AUTO) 11 % (2-9); NEUTROPHILS # (AUTO) 5.51 x10^3/uL (1.8-6.8); NEUTROPHILS % (AUTO) 78 % (42-75); PLATELET COUNT 215 x10^3/uL (130-400); RED BLOOD COUNT 4.72 x10^6/uL (4.38-5.82); RED CELL DISTRIBUTION WIDTH 14.3 % (9.4-14.8)
--- NOTE | 2020-02-22 18:10 | NUR ---
PT ATTEMPTING TO PROVIDE UA. PT BELONGINGS IN LOCKER. ROOM SECURE.
[2020-02-22] MEDS ORDERED: LORazepam 1MG TABLET ONE (18:14)
[2020-02-22 18:20] LABS: ALBUMIN 3.3 g/dL (3.4-5.0); ANION GAP 7 mmol/L (5-15); CALCIUM 8.7 mg/dL (8.5-10.1); CHLORIDE 110 mmol/L (98-107)
[2020-02-22 18:24] LABS: ALANINE AMINOTRANSFERASE 14 U/L (12-78); ALKALINE PHOSPHATASE 65 U/L (45-117); BILIRUBIN,TOTAL 0.9 mg/dL (0.2-1.0); CREATININE 0.86 mg/dL (0.7-1.3)
[2020-02-22 18:26] LABS: SALICYLATE LEVEL < 1.7 mg/dL (2.8-20.0)
[2020-02-22] MEDS ORDERED: LORazepam 1MG TABLET PO ONE (18:30)
--- NOTE | 2020-02-22 18:47 | NUR ---
MEDICATED PER ORDERS. SITTER PRESENT.
--- NOTE | 2020-02-22 18:49 | NUR ---
REPORT TO JOSE
[2020-02-22 19:00] LABS: MICROSCOPIC NOT IND
--- NOTE | 2020-02-22 19:07 | NUR ---
PATIENT IS SLEEPING IN ROOM, RESTING COMFORTABLY AT THIS TIME, NAD. AWAITING FOR MEDICAL CLEARENCE, RN WILL CONTINUE TO MONITOR
[2020-02-22 19:15] LABS: AMPHETAMINE SCREEN, URINE Negative (Negative); BARBITURATE SCREEN, URINE Negative (Negative); BENZODIAZEPINE SCREEN, URINE Negative (Negative); CANNABINOID SCREEN, URINE Negative (Negative); COCAINE SCREEN, URINE Negative (Negative); METHADONE SCREEN, URINE Negative (Negative); OPIATE SCREEN, URINE Negative (Negative)
--- NOTE | 2020-02-22 20:30 | NUR ---
PATIENT AWAKE AND COOPERATIVE, HE IS EATING A SAFETY MEAL TRAY, TOLERATING IT WELL.
--- NOTE | 2020-02-22 20:40 | NUR ---
[facility] COULD NOT VARIFY INSURANCE.
--- NOTE | 2020-02-22 21:18 | NUR ---
PT PACKET SENT TO [facility] [place], [facility].
--- NOTE | 2020-02-22 21:42 | NUR ---
RN CHANGED PATIENTS BRIEF AND SHEETS BECAUSE HE URINATED. PATIENT TOLERATED IT WELL, WILL CONTINUE TO MONITOR. PATIENT ATE 100% OF HIS FOOD
--- NOTE | 2020-02-22 22:20 | NUR ---
[facility]NIS DENIED PATIENT.
--- NOTE | 2020-02-23 00:31 | NUR ---
patient had another accident, RN and sitter changed patients breif and sheets. patient is complaining of being very uncomfortable on stretcher, awaiting for a hospital bed. rn will continue to monitor
--- NOTE | 2020-02-23 01:45 | NUR ---
Pt requesting something to help him sleep, order for trazodone being placed by Dr Tapia
[2020-02-23] MEDS ORDERED: TRAZODONE 50MG TABLET ONE (01:47)
--- NOTE | 2020-02-23 01:57 | NUR ---
Pt changed at this time, warm blankets provided
[2020-02-23] MEDS ORDERED: TRAZODONE 50MG TABLET PO PRN (02:00)
--- NOTE | 2020-02-23 02:44 | NUR ---
Pt wet again, brief and linen changed
--- NOTE | 2020-02-23 03:48 | NUR ---
Pt stating he still cannot sleep and trying to get out of bed. Pt assisted to comfortable position, provided with marlyn rico, and television turned on. NAD noted
--- NOTE | 2020-02-23 04:42 | NUR ---
Pt resting comfortably in bed watching TV, NAD noted
--- NOTE | 2020-02-23 05:48 | NUR ---
Pt sleeping in bed, NAD noted, safety ensured, sitter observing pt from [place]
--- NOTE | 2020-02-23 06:50 | NUR ---
Report given to Rey CABAN
--- NOTE | 2020-02-23 07:13 | NUR ---
[facility] denied patient due to history.
--- NOTE | 2020-02-23 08:23 | NUR ---
PT RESTING COMFORTABLY IN BED. AROUSES TO VERBAL STIMULI. REFUSES BREAKFAST AT THIS TIME
--- NOTE | 2020-02-23 09:07 | NUR ---
BREAKFAST PROVIDED. PT MOVED TO HOSPITAL BED WITH NEW LINENS. NEW BRIEF. PT DENIES FURTHER NEEDS AT THIS TIME
--- NOTE | 2020-02-23 11:05 | NUR ---
PT PROVIDED WITH BLANKET X2 AND WATER PER REQUEST. DENIES FURTHER NEEDS AT THIS TIME
--- NOTE | 2020-02-23 12:48 | NUR ---
PT PROVIDED WITH WATER PER REQUEST. DENIES FURTHER NEEDS AT THIS TIME
[2020-02-23 13:43] VITALS: BP 176/98
--- NOTE | 2020-02-23 14:34 | NUR ---
PT CLAIMS WALKER WAS BOUGHT TO THE ED VIA [employer]. WALKER NOT FOUND IN LOCKER OR STARAGE AREA OR ROOM. CALLED [facility] [phone] AND THEY CLAIMED TO HAVE HIS WALKER THERE.
--- NOTE | 2020-02-23 14:45 | NUR ---
CALLED [facility] AGAIN AND THEY CERIFIED THAT THE PT NUNO IS THERE AT THE [facility]
== END 2020-02-23 14:47 | disposition home or self-care (01) ==
LOC: ED 18:15
DX: R45.851 Suicidal ideations (principal); F33.9 Major depressive disorder, recurrent, unspecified; I10 Essential (primary) hypertension; Z95.0 Presence of cardiac pacemaker
CPT/HCPCS: 36415; 80053; 80307; 81003; 85025; 99283

== ENCOUNTER 2020-03-12 14:34 | Emergency (ER) | payer MEDICARE ==
[~2020-03-12] VITALS: Ht 193 cm; Wt 109.1 kg
[~2020-03-12 14:34] MED LIST changes: -PANT20TA3 PO; +PANT20TA4 PO
[2020-03-12 14:35] VITALS: BP 146/83
--- NOTE | 2020-03-12 15:00 | NUR ---
Pt arives to ed with sob and cough. Pt appears to be confused. Pt denies being confused. Pt answers a/o questions but then doesnt remeber topics discussed. Pt is at assisted living facility. Pt appears to not be in distress and vitals wnl. Pt placed in bed and safety precautions in place.
--- NOTE | 2020-03-12 15:46 | NUR ---
Pt attempting to leave, pt is confused and no following directions. Pt called uber, pt reoriented and back to bed. Sitter requested.
--- NOTE | 2020-03-12 16:00 | NUR ---
Pt given meal tray.
[2020-03-12 16:06] LABS: BASOPHILS # (AUTO) 0.03 x10^3/uL (0-0.1); BASOPHILS % (AUTO) 0 % (0-1); EOSINOPHILS # (AUTO) 0.09 x10^3/uL (0-0.4); EOSINOPHILS % (AUTO) 1 % (1-7); LYMPHOCYTES # (AUTO) 1.04 x10^3/uL (1-3.4); LYMPHOCYTES % (AUTO) 13 % (22-44); MD NO; MEAN CORPUSCULAR HEMOGLOBIN 30.3 pg (27.5-34.5); MEAN CORPUSCULAR HGB CONC 33.5 g/dL (33.2-36.2); MEAN PLATELET VOLUME 7.8 fL (7.4-10.4); MONOCYTES # (AUTO) 0.72 x10^3/uL (0.2-0.8); MONOCYTES % (AUTO) 9 % (2-9); NEUTROPHILS # (AUTO) 5.87 x10^3/uL (1.8-6.8); NEUTROPHILS % (AUTO) 76 % (42-75); PLATELET COUNT 302 x10^3/uL (130-400); RED BLOOD COUNT 4.96 x10^6/uL (4.38-5.82)
[2020-03-12 16:11] LABS: ALBUMIN 3.4 g/dL (3.4-5.0); ANION GAP 5 mmol/L (5-15); CALCIUM 8.6 mg/dL (8.5-10.1); CHLORIDE 107 mmol/L (98-107)
[2020-03-12 16:17] LABS: ALANINE AMINOTRANSFERASE 10 U/L (12-78); ALKALINE PHOSPHATASE 64 U/L (45-117); BILIRUBIN,TOTAL 0.9 mg/dL (0.2-1.0); CREATININE 0.88 mg/dL (0.7-1.3); TOTAL PROTEIN 7.5 g/dL (6.4-8.2); TROPONIN I < 0.015 ng/mL (0.000-0.045)
--- NOTE | 2020-03-12 17:11 | NUR ---
Patient/Caregiver given discharge instructions and they have confirmed that they understand the instructions. Patient ambulatory with steady gait.
== END 2020-03-12 17:16 | disposition home or self-care (01) ==
LOC: ED 17:00
DX: R06.00 Dyspnea, unspecified (principal); Z20.828 Contact with and (suspected) exposure to other viral communicable diseases; I10 Essential (primary) hypertension; I49.3 Ventricular premature depolarization
CPT/HCPCS: 36415; 71045; 80053; 83605; 83880; 84484; 85025; 85379; 87040; 87635; 93005; 99285